=== PATIENT | male | born 1960 | race Caucasian/White ===

== ENCOUNTER 2018-03-28 15:32 | Emergency (ER) | payer MEDICARE, MEDICAID ==
[~2018-03-28 15:32] MED LIST: FLEXERIL10 MG PO; NORCO 325 MG-51 TAB PO
[2018-03-28] MEDS ORDERED: OXYCODONE HCL10 M1 PO (15:47)
[2018-03-28] MEDS ORDERED: LACTULOSE10 GM/15 M PO (15:47)
[2018-03-28 16:38] LABS: ALBUMIN 2.9 g/dL (3.5-5.0); BUN/CREATININE RATIO 11.8 (6.0-26.0); POTASSIUM 3.6 mmol/L (3.6-5.0); TOTAL PROTEIN 7.8 g/dL (6.3-8.2)
[2018-03-28 16:45] LABS: MEAN CELL VOLUME 99 fl (78-100); MEAN CORPUSCULAR HEMOGLOBIN 33 pg (27-31); MEAN CORPUSCULAR HGB CONC 33 g/dL (33-37); MEAN PLATELET VOLUME 10.9 fl (7.4-10.4); PLATELET COUNT 123 K/mm3 (130-400); RED BLOOD COUNT 3.96 M/mm3 (4.20-5.60); RED CELL DISTRIBUTION WIDTH 13.4 % (11.5-14.5); WHITE BLOOD COUNT 5.9 K/mm3 (4.8-10.8)
[2018-03-28 16:52] LABS: NEUTROPHILS 66 % (42-75)
[2018-03-28 16:53] LABS: LYMPHOCYTE 24 % (20-51); MONOCYTE 9 % (3-10)
[2018-03-28 17:02] LABS: LIPASE 117 U/L (23-300)
[2018-03-28 17:33] LABS: URINE BILIRUBIN NEGATIVE (NEGATIVE); URINE BLOOD NEGATIVE (NEGATIVE); URINE COLOR YELLOW; URINE GLUCOSE NEGATIVE (NEGATIVE); URINE KETONE NEGATIVE (NEGATIVE); URINE LEUKOCYTE ESTERASE NEGATIVE (NEGATIVE); URINE NITRATE NEGATIVE (NEGATIVE); URINE PROTEIN(semi-quant) NEGATIVE (NEGATIVE); URINE UROBILINOGEN NORMAL (NORMAL)
[2018-03-28 18:28] VITALS: BP 124/86
== END 2018-03-28 18:46 | disposition home or self-care (01) ==
LOC: ED 15:32
PROVIDERS: Physician Assistant
DX: K72.90 Hepatic failure, unspecified without coma (principal); B19.20 Unspecified viral hepatitis C without hepatic coma; R18.8 Other ascites; F17.210 Nicotine dependence, cigarettes, uncomplicated